=== PATIENT | male | born 1995 | race Caucasian/White ===

== ENCOUNTER 2024-02-17 19:32 | Emergency (ER) | payer OTHER, SELFPAY ==
[2024-02-17] VITALS (9 sets, daily range): BP systolic 113–128; BP diastolic 60–76; PULSE 90–126; RESP 13–22; TEMP 37.4; O2SAT 95–98; BMI 23.7
--- NOTE | 2024-02-17 19:58 | DI.RAD.S_ITS ---
PROCEDURE: XR CHEST 1V INDICATIONS: suspected sepsis TECHNIQUE: One view of the chest was acquired. COMPARISON: None. FINDINGS: Surgical changes and devices: None. Lungs and pleura: Lungs are clear. No pleural effusions or pneumothorax. Mediastinum: Mediastinal contours appear normal. Heart size is normal. Bones and chest wall: No suspicious bony lesions. Overlying soft tissues appear unremarkable. IMPRESSION: No acute cardiopulmonary abnormality is seen. Dictated by: Juan Avendano M.D. on 02/17/2024 at 20:28 Approved by: Juan Avendano M.D. on 02/17/2024 at 20:28
--- NOTE | 2024-02-17 19:58 | EKG_ITS ---
[place] [id number] [place] [id number] Test Date: 2024-02-17 Pat Name: Remy Reyes Department: [facility] Room: Gender: Male Lead Advisor: KAE : 1995 Requested By: Order Number: [id number] Reading MD: Ta Pack MD Measurements Intervals [place] Rate: 114 P: 43 MI: 124 QRS: 57 QRSD: 84 T: -50 QT: 310 QTc: 427 Interpretive Statements Sinus tachycardia T wave abnormality, consider inferior ischemia NO PRIOR TRACING Electronically Signed On 02-18-2024 6:50:30 PST by aT Pack MD
[2024-02-17 20:07] LABS: Add Manual Diff / Slide Review NO; Basophils Absolute Auto 100 /uL (0-100); Basophils Percent Auto 0.8 % (0-2); Eosinophils Absolute Auto 0 /uL (0-450); Eosinophils Percent Auto 0.3 % (2-4); Hematocrit 36.8 % (41-53); Hemoglobin 12.2 g/dL (13.5-17.5); Lymphocytes Absolute Auto 1200 /uL (1100-4500); Lymphocytes Percent Auto 8.1 % (25-40); Mean Corpuscular HGB Conc 33.2 % (30-36); Mean Corpuscular Hemoglobin 27.8 PG (26-34); Mean Corpuscular Volume 83.6 fL (80-100); Monocytes Absolute Auto 1800 /uL (0-900); Monocytes Percent Auto 11.7 % (3-14); Neutrophils Absolute Auto 12100 /uL (1500-7000); Neutrophils Percent Auto 79.1 % (50-75); Platelet Count 480 X10^3/uL (150-400); White Blood Cell Count 15.3 X10^3/uL (4.5-11.0)
[2024-02-17 20:11] LABS: INR 1.5 (0.9-1.3); Prothrombin Time 17.2 SECONDS (9.4-12.5)
[2024-02-17 20:13] LABS: PTT Partial Thromboplastin Tim 32 SECONDS (25.1-36.5)
[2024-02-17 20:15] LABS: Alanine Aminotransferase 98 IU/L (<50); Albumin 3.8 g/dL (3.5-5.0); Albumin Globulin Ratio 1.2 (1.0-2.8); Alkaline Phosphatase 113 U/L (38-126); Aspartate Aminotransferase 40 IU/L (17-59); BUN Creatinine Ratio 15.1 (6-22); Bilirubin Total 0.7 mg/dL (0.2-1.3); Blood Urea Nitrogen 11 mg/dL (9-20); Calcium 8.8 mg/dL (8.4-10.2); Carbon Dioxide 23 mmol/L (22-32); Chloride 100 mmol/L (98-107); Estimated Glomerular Filt Rate > 60 mL/min (>60); Globulin 3.1 g/dL (1.7-4.1); Glucose 135 mg/dL (70-100); HEMOLYSIS < 15 (0-50); Lactate (Lactic Acid) 0.7 mmol/L (0.7-2.1); Lipase 50 U/L (23-300); Potassium 3.9 mmol/L (3.4-5.1); Sodium 132 mmol/L (137-145); Total Protein 6.9 g/dL (6.3-8.2)
[2024-02-17] MEDS: SODIUM CHLORIDE 0.9% 1,000 ML 1000 ML IV (20:19)
[2024-02-17 20:32] LABS: Procalcitonin 0.292 ng/mL (<0.5)
[2024-02-17 20:43] LABS: Bacteria Urine Few (2-10); Mucus Urine 1+ (Negative); RBC Urine 0-1/HPF (0-5/HPF); Squamous Epithelial Cell Urine 0-1 /HPF (0-5/HPF); Urine Volume 10mL (spun); WBC Urine 1-5/HPF (0-5/HPF)
--- NOTE | 2024-02-17 21:00 | PC.NURSE ---
Pt explained history of left lower back pain that started 01/29/24 that he described as radiating to left flank. On 01/31/24 pt started having fevers, left chest pain with radiating pain to left shoulder. He has been seen at the walk in clinic on [facility] and prescribed steroids and muscle relaxers which initially seemed to help. Pt has since stopped taking those medications. He was seen by his PCP at [facility] and prescribed oral abx which he started yesterday. Due to continued elevated WBC count pts pcp told him to be seen in the ER for further testing. Covid/flu testing has been negative. No trauma to left arm/shoulder that pt recalls.
--- NOTE | 2024-02-17 21:35 | ED_ITS ---
HPI - Fever General Chief Complaint: Fever Stated Complaint: fever t-14, resting heart rate 127, sent by pcp Time Seen by Provider: 02/17/24 20:34 Source: patient Mode of arrival: Ambulatory History of Present Illness HPI Narrative: 28-year-old male with no significant past medical history presents by private vehicle for nearly 3 weeks of intermittent fevers and elevated heart rate. Patient states that since no ever 15 he was had daily fevers and profound fatigue. Around the same time he began to have some lower back pain that was attributed to a pinched nerve. He saw the walk-in clinic who gave him a muscle relaxer and a steroid taper. He continued to have fevers and fatigue. Recently he saw his primary care doctor at the [facility], who ordered laboratory work. He stated that the patient's white blood cell count was elevated at 19, however he had no known source and out of precaution Prescribed him azithromycin and Augmentin. Patient has taken 2 doses of these medications. He states that he was told by his flight doc that if he continued to have symptoms he should come to the ER for additional assessment and testing. Patient states that he was lost 10 lb due to his illness and his resting heart rate is persistently over 100. Related Data Allergies Allergy/AdvReac Type Severity Reaction Status Date / Time No Known Drug Allergies Allergy Verified 02/17/24 19:45 Patient History Social History Smoking Status: Never smoker Smoking Status: Never smoker Substance Use Type: does not use Exam Initial Vital Signs Initial Vital Signs: Vital Signs Temperature 99.3 F 02/17/24 19:38 Pulse Rate 126 H 02/17/24 19:38 Respiratory Rate 18 02/17/24 19:38 Blood Pressure 125/76 02/17/24 19:38 Pulse Oximetry 98 02/17/24 19:38 Oxygen Delivery Method Room Air 02/17/24 19:38 Const: Awake, alert, ill-appearing, nontoxic appearing Cardiac: Tachycardia, regular rhythm RESP: unlabored, clear bilaterally, no wheezing GI: Soft, nontender, nondistended, no rebound, no guarding MSK back: Atraumatic, full range of motion, pulses equal, no midline tenderness Skin: Warm, Dry, intact, no rashes Neuro: AO x3, CN II-XII grossly intact, moves all extremities Course Orders Ordered: Discontinued Medications Sodium Chloride (Normal Saline 0.9%) 1,000 mls @ 1,000 mls/hr IV BOLUS ONE Stop: 02/17/24 20:56 Last Infusion: 02/17/24 21:00 Dose: Infused Documented By: Admin: 02/17/24 20:19 Dose: 1,000 mls/hr Documented By: Ondansetron HCl (Ondansetron 4 Mg/2 Ml Inj) 4 mg IV NOW PRN PRN Reason: Nausea And Vomiting Ondansetron HCl (Ondansetron 4 Mg Odt) 4 mg SL NOW PRN PRN Reason: Nausea And Vomiting Vital Signs Vital signs: Vital Signs - 8 hr 02/17/24 22:00 02/17/24 22:00 02/17/24 22:30 Pulse Rate 94 H 104 H Respiratory Rate 16 22 Blood Pressure 128/76 Pulse Oximetry 97 96 Oxygen Delivery Method Room Air 02/17/24 22:33 02/17/24 22:33 02/17/24 23:00 Pulse Rate 105 H Respiratory Rate 17 Blood Pressure 113/60 120/70 Pulse Oximetry 96 Oxygen Delivery Method 02/17/24 23:00 02/17/24 23:30 02/17/24 23:30 Pulse Rate 94 H 90 Respiratory Rate 20 20 Blood Pressure 117/68 Pulse Oximetry 95 95 Oxygen Delivery Method Room Air MDM - Fever Lab Data 02/17/24 19:55 02/17/24 19:55 Labs: Lab Results 02/17/24 02/17/24 Range/Units 19:55 20:22 WBC 15.3 H (4.5-11.0) X10^3/uL RBC 4.40 L (4.5-5.9) X10^6/uL Hgb 12.2 L (13.5-17.5) g/dL Hct 36.8 L (41-53) % MCV 83.6 (80-100) fL MCH 27.8 (26-34) PG MCHC 33.2 (30-36) % RDW 13.0 (11.6-14.8) % Plt Count 480 H (150-400) X10^3/uL Neut % (Auto) 79.1 H (50-75) % Lymph % (Auto) 8.1 L (25-40) % Mellette % (Auto) 11.7 (3-14) % Eos % (Auto) 0.3 L (2-4) % Baso % (Auto) 0.8 (0-2) % Neut # (Auto) 33618 H (2185-0305) /uL Lymph # (Auto) 1200 (4471-1492) /uL Mellette # (Auto) 1800 H (0-900) /uL Eos # (Auto) 0 (0-450) /uL Baso # (Auto) 100 (0-100) /uL PT 17.2 H (9.4-12.5) SECONDS INR 1.5 H (0.9-1.3) APTT 32 (25.1-36.5) SECONDS Sodium 132 L (137-145) mmol/L Potassium 3.9 (3.4-5.1) mmol/L Chloride 100 (98-107) mmol/L Carbon Dioxide 23 (22-32) mmol/L BUN 11 (9-20) mg/dL Creatinine 0.73 (0.66-1.25) mg/dL Estimated GFR > 60 (>60) mL/min BUN/Creatinine Ratio 15.1 (6-22) Glucose 135 H (70-100) mg/dL Lactate 0.7 (0.7-2.1) mmol/L Calcium 8.8 (8.4-10.2) mg/dL Total Bilirubin 0.7 (0.2-1.3) mg/dL AST 40 (17-59) IU/L ALT 98 H (<50) IU/L Alkaline Phosphatase 113 (38-126) U/L Total Protein 6.9 (6.3-8.2) g/dL Albumin 3.8 (3.5-5.0) g/dL Globulin 3.1 (1.7-4.1) g/dL Albumin/Globulin Ratio 1.2 (1.0-2.8) Lipase 50 (23-300) U/L Procalcitonin 0.292 (<0.5) ng/mL TSH 1.23 (0.47-4.68) uIU/mL Urine RBC 0-1/hpf (0-5/HPF) Urine WBC 1-5/hpf (0-5/HPF) Ur Squamous Epith Cells 0-1 /hpf (0-5/HPF) Urine Bacteria Few (2-10) H (None) Urine Mucus 1+ H (Negative) Vol Urine Centrifuged 10ml (spun) Monoscreen Negative (Negative) Urine Dip Bedside Urine Glucose Negative Bedside Urine Bilirubin - Negative Bedside Urine Ketone ++ 40 Urine Specific Matheny 1.020 Bedside Urine Occult Blood - Negative Bedside Urine pH 6.0 Bedside Urine Protein +/- 15 Bedside Urine Urobilinogen - Negative Bedside Urine Nitrite - Negative Bedside Urine Leukocytes +/- 15 Esterase Imaging Data Chest x-ray: Radiologist's Impression: PROCEDURE: XR CHEST 1V INDICATIONS: suspected sepsis TECHNIQUE: One view of the chest was acquired. COMPARISON: None. FINDINGS: Surgical changes and devices: None. Lungs and pleura: Lungs are clear. No pleural effusions or pneumothorax. Mediastinum: Mediastinal contours appear normal. Heart size is normal. Bones and chest wall: No suspicious bony lesions. Overlying soft tissues appear unremarkable. IMPRESSION: No acute cardiopulmonary abnormality is seen. Dictated by: Juan Avendano M.D. on 02/17/2024 at 20:28 Approved by: Juan Avendano M.D. on 02/17/2024 at 20:28 ECG Data Attestation: I personally reviewed and interpreted this ECG as follows: Prior ECG tracings: not available for review Interpretation: Sinus tachycardia at 114 beats per minute. Normal [place]. No STEMI MDM Narrative Medical decision making narrative: Fatigued but nontoxic appearing patient with 3 weeks of persistent symptoms. Physical exam is unremarkable except for a fatigued appearing patient with sinus tachycardia. Lungs are clear, abdomen soft, no tenderness to palpation in any location. He was currently being evaluated by the [facility] [employer] but no cause has been found. Laboratory work reviewed, WBC count 15.3, hemoglobin 12.2, platelets 480, INR 1.5, sodium 132, potassium 3.9, creatinine 0.73, lactic acid 0.7, T bili 0.7, AST 40, ALT 98, alk phos 113, procalcitonin 0.292, TSH 1.23. Monospot negative. Chest x-ray negative for acute findings. Patient received a L of IV fluids and heart rate decreased to 90 beats per minute. Patient stated he did feel improved after receiving IV fluids. Unknown source of patient's reported symptoms. He was afebrile here in the emergency department and other than a WBC count of 15 labs are otherwise fairly unremarkable. Patient reports that his white count with his flight doc was 19, so this is downtrending. Blood cultures has been drawn and are pending at the time of discharge. Patient and his at bedside were counseled on all lab and imaging findings. No obvious cause of fever identified at this time. He was advised to continue to closely follow with his primary doc for definitive cause of symptoms. ED return recautions discussed. Discharge Plan Departure Patient Disposition: Home Clinical Impression: Fever of unknown origin Instructions: DI for Fever (Symptom) -- Adult Activity Restrictions/Additional Instructions: Your laboratory work today shows an overall decrease in her white blood cell count compared to when your PCM measured your blood. Your chest x-ray did not show any signs of pneumonia, and your bloodstream markers of sepsis including a lactic acid and procalcitonin were within normal levels (indicating that this is not sepsis). Your mono screen test today was also normal. I do not know the cause of your persistent symptoms. Blood and urine cultures are pending. Keep an eye out for a phone call, as someone from the hospital we will notify you if they have anything growing in them. Continue to closely follow up with your flight doc to figure out the cause of your symptoms. Stand Alone Forms: Patient Portal/API/Survey
[2024-02-17 21:54] LABS: Monotest Negative (Negative)
[2024-02-18 00:44] LABS: Thyroid Stimulating Hormone 1.23 uIU/mL (0.47-4.68)
== END 2024-02-17 23:52 | disposition home or self-care (01) ==
PROVIDERS: Emergency Provider Emergency Medicine
DX: R50.9 Fever, unspecified (principal); R53.83 Other fatigue; R00.0 Tachycardia, unspecified
CPT/HCPCS: 36415; 71045; 80053; 81003; 81015; 83605; 83690; 84145; 84443; 85025; 85610; 85730; 86318; 87040; 87086; 93005; 93010; 96360; 99284

== ENCOUNTER → 2024-05-22 07:11 | Outpatient (CLI) | payer OTHER, SELFPAY ==
--- NOTE | 2024-05-22 | DI.MRI.S_ITS ---
PROCEDURE: MR HEAD/BRAIN WO/W CON INDICATIONS: METASTATIC GIST NEW ONSET HEADACHE TECHNIQUE: Noncontrast axial T1 spin echo, axial T2 fast spin echo, sagittal and axial FLAIR, coronal T2 fast spin echo, axial gradient echo, axial diffusion and ADC through the brain. After the administration of contrast, axial and coronal and sagittal 3D VIBE or T1 spin echo with fat saturation through the brain. COMPARISON: None. FINDINGS: Image quality: Excellent. CSF Spaces: Basal cisterns are patent. No extra-axial fluid collections. Ventricles are normal in size and shape. Brain: No midline shift. No intracranial bleeds or masses. No abnormal intracranial enhancement. The brainstem appears normal. Diffusion-weighted images demonstrate no acute infarct. No chronic ischemic insults. Normal intravascular flow voids are present. Skull and face: Calvarial marrow is normal in signal. Orbits appear normal. Sinuses: Sinuses and mastoids appear clear. IMPRESSION: No findings concerning for intracranial metastases. No acute intracranial abnormalities or abnormal intracranial enhancement. Dictated by: Juan Avendano M.D. on 05/24/2024 at 8:35 Approved by: Juan Avendano M.D. on 05/24/2024 at 8:40
== END ==
LOC: MRI 07:12
DX: C49.A0 Gastrointestinal stromal tumor, unspecified site (principal); R51.9 Headache, unspecified
CPT/HCPCS: 70553; A9579

== ENCOUNTER → 2024-06-23 08:58 | Outpatient (CLI) | payer OTHER, SELFPAY ==
--- NOTE | 2024-06-23 09:00 | DI.CT.S_ITS ---
PROCEDURE: CT HEAD/BRAIN WO CON INDICATIONS: METASTATIC GIST W/HEADACHES TECHNIQUE: Noncontrast 4.5 mm thick angled axial sections acquired from the foramen magnum to the vertex, with coronal and sagittal reformats. For radiation dose reduction, the following was used: automated exposure control, adjustment of mA and/or kV according to patient size. COMPARISON: [facility], MR, MR HEAD/BRAIN WO/W CON, 05/22/2024, 7:24. FINDINGS: Image quality: Diagnostic. CSF spaces: Basal cisterns are patent. No extra-axial fluid collections. Ventricles are normal in size and shape. Brain: No midline shift. No intracranial masses or hemorrhage. Walsh-white matter interface is normal. Skull and face: Calvarium and visualized facial bones are intact, without suspicious lesions. Sinuses: Visualized sinuses and mastoids are clear. IMPRESSION: No acute intracranial pathology. CT has low sensitivity for intracranial metastases, recommend follow-up MRI if there is concern for development of intracranial metastatic disease. Dictated by: Juan Avendano M.D. on 06/23/2024 at 12:02 Approved by: Juan Avendano M.D. on 06/23/2024 at 12:04
--- NOTE | 2024-06-23 09:00 | DI.CT.S_ITS ---
PROCEDURE: CT CHEST ABD PEL W CON INDICATIONS: METASTATIC GIST W/HEADACHES TECHNIQUE: After the administration of intravenous contrast, 5 mm thick sections acquired from the lung apices to the symphysis. 5 mm coronal and sagittal reformats were performed, with additional 7 mm MIP reformats through the lungs. For radiation dose reduction, the following was used: automated exposure control, adjustment of mA and/or kV according to patient size. COMPARISON: Outside Facility, MR, MR ABDOMEN WO/W CON, 03/01/2024, 15:21. FINDINGS: Image quality: Diagnostic Lungs and pleura: No airspace consolidation. No pleural effusions. Small pulmonary nodules are present for example right anterior lung measuring 2-3 mm 5/243. No suspicious nodule over 6 mm. Attention on follow-up. Mediastinum, heart, and esophagus: Heart size is within normal limits. Anterior mediastinal soft tissue likely hyperplastic thymus, attention on follow-up. No pathologic lymph nodes otherwise by size criteria. Chest wall and thyroid: Unremarkable Liver: Liver lesions are either stable or decreased, for example anterior left lobe measuring 1 cm on image 2/132, previously 1.5 cm. Superior left lobe lesion measuring 0.8 cm (2/107), stable. Gallbladder and biliary system: Unremarkable, nondilated Pancreas: No ductal dilation Spleen: Nonenlarged Adrenals: No discrete nodules Kidneys: No solid mass. No hydronephrosis. Vessels and lymph nodes: The main portal vein is patent. No abdominal aortic aneurysm no pathologic lymphadenopathy by size criteria Bowel and peritoneum: Low-density mass arising from the stomach measures 9.9 x 9.6 cm on 1 axial slice (2/107), previously 10.9 x 10.4 cm on the same corresponding MR image. No bowel obstruction. No pathologic ascites. Nondilated appendix. Body wall: Unremarkable Pelvis: Bladder is unremarkable. Heterogeneous prostate not well assessed on this study. Bones: Small sclerotic lesion in the anterior right pubic bone, indeterminate, possibly bone island. Attention on follow-up. No aggressive appearing osseous findings elsewhere. IMPRESSION: Low-density mass arising from the superior stomach compatible with reported GIST, decreased in size. The low CT density is likely a result of treatment effect. Many liver metastases, either stable or slightly decreased. Other findings above. Dictated by: Helder Worrell M.D. on 06/24/2024 at 15:18 Approved by: Helder Worrell M.D. on 06/24/2024 at 15:27
== END ==
DX: C49.A2 Gastrointestinal stromal tumor of stomach (principal); C78.7 Secondary malignant neoplasm of liver and intrahepatic bile duct
CPT/HCPCS: 70450; 71260; 74177; Q9967

== ENCOUNTER → 2024-09-19 10:48 | Outpatient (CLI) | payer OTHER, SELFPAY ==
--- NOTE | 2024-09-19 10:51 | DI.MRI.S_ITS ---
PROCEDURE: MR ABDOMEN LIVER PROTOCOL INDICATIONS: SURGICAL PLANNING, GIST TECHNIQUE: Coronal HASTE, axial 2D FLASH in- and [id number]; axial breath-hold T2 FSE. Dynamic axial VIBE during the administration of contrast; post-contrast coronal VIBE or 2D FLASH with fat saturation from the hepatic dome to the iliac crests. Optional diffusion weighted imaging and ADC may be performed. COMPARISON: Outside Facility, MR, MR ABDOMEN WO/W CON, 03/01/2024, 15:21. [facility], CT, CT CHEST ABD PEL W CON, 06/23/2024, 10:06. FINDINGS: Image quality: Diagnostic. Lung bases: Unremarkable. Liver: Decreased size of the liver metastases, 4 of which are in segments 2/3, and 1 which is in segment 5. Target lesions as follows: -1 cm segment 2/3 lesion, previously 1.5 cm (series 27, image 40). -0.6 cm segment 5 lesion, previously 0.8 cm (series 27, image 58). Gallbladder: No gallstones or wall thickening. Biliary ducts: No biliary dilation. Pancreas: No ductal dilation. Spleen: Size is within normal limits. Adrenal Glands: No adrenal nodules. Kidneys and Ureters: No hydronephrosis. No solid mass. No complex renal cystic lesion which requires follow up. Stomach and Bowel: Gastric fundal mass measuring 7.4 x 8.7 cm, previously 11.6 x 10.5 cm in 2023 . Peritoneum: No abnormal intraperitoneal fluid. No free air. Ventral Wall: No hernia. Abdominal Nodes: No retroperitoneal or mesenteric adenopathy by size criteria. Vessels: Aorta and inferior vena cava are normal in size. Bones: No aggressive osseous abnormality. IMPRESSION: Decreased size of the gastric mass measuring 7.4 x 8.7 cm, previously 11.6 x 10.5 cm. Decreased size of liver metastases, most of which are in segments 2/3, 1 which is in the right hepatic lobe. Dictated by: Harry Brian M.D. on 09/20/2024 at 10:46 Approved by: Harry Brian M.D. on 09/20/2024 at 10:54
== END ==
LOC: MRI 10:50
DX: Z01.818 Encounter for other preprocedural examination (principal); C49.A0 Gastrointestinal stromal tumor, unspecified site; C78.7 Secondary malignant neoplasm of liver and intrahepatic bile duct
CPT/HCPCS: 74183; A9579

== ENCOUNTER → 2024-12-13 13:08 | Outpatient (CLI) | payer OTHER, SELFPAY ==
--- NOTE | 2024-12-13 13:11 | DI.RAD.S_ITS ---
PROCEDURE: FL BARIUM SWALLOW INDICATIONS: dysphagia COMPARISON: None. FINDINGS: Function: There is normal esophageal peristalsis. Moderate to severe gastroesophageal reflux is noted with contrast reflux to the proximal esophageal lumen. There is normal transit of a calibrated barium tablet through the esophagus into the stomach. Morphology: Single contrast views show no esophageal strictures, extrinsic mass effects, or diverticula. Limited images of the stomach demonstrate no gross abnormalities. IMPRESSION: Significant gastroesophageal reflux. No focal high-grade stricture or gross intraluminal filling defects. No gross abnormality is seen in visualized portion of stomach. Dictated by: Graham Rice M.D. on 12/13/2024 at 17:19 Approved by: Graham Rice M.D. on 12/13/2024 at 17:20
== END ==
LOC: RAD 13:10
PROVIDERS: Visit Provider Radiology Diagnostic Radiology
DX: R13.10 Dysphagia, unspecified (principal); K21.9 Gastro-esophageal reflux disease without esophagitis
CPT/HCPCS: 74220

== ENCOUNTER → 2024-12-23 08:19 | Outpatient (CLI) | payer OTHER, SELFPAY ==
--- NOTE | 2024-12-23 08:20 | DI.MRI.S_ITS ---
PROCEDURE: MR ABDOMEN LIVER PROTOCOL INDICATIONS: GASTROINTESTINAL STROMAL TUMOR TECHNIQUE: Coronal HASTE, axial 2D FLASH in- and [id number]; axial breath-hold T2 FSE. Dynamic axial VIBE during the administration of contrast; post-contrast coronal VIBE or 2D FLASH with fat saturation from the hepatic dome to the iliac crests. Optional diffusion weighted imaging and ADC may be performed. COMPARISON: [facility], CT, CT CHEST ABD PEL W CON, 06/23/2024, 10:06. [facility], MR, MR ABDOMEN LIVER PROTOCOL, 09/19/2024, 11:07. FINDINGS: Image quality: Diagnostic. Lung bases: Unremarkable. Liver: Interval resection of the liver metastases. The 1.7 x 1.6 cm treatment bed in segment 2/4 demonstrates signal characteristics different than the other resected lesions, with decreased internal microhemorrhage, and with T2 intermediate signal. No restricted diffusion. There is new thrombosis of a distal posterior right intrahepatic portal vein, resulting in a vascular shunt of segment 7 and (series 12, image 27). No new liver lesion on the Eovist sequences. Gallbladder: No gallstones or wall thickening. Biliary ducts: No biliary dilation. Pancreas: No ductal dilation. Spleen: New splenic infarcts. Adrenal Glands: No adrenal nodules. Kidneys and Ureters: No hydronephrosis. No solid mass. No complex renal cystic lesion which requires follow up. Stomach and Bowel: Normal colonic caliber, without significant wall thickening. Interval resection of the gastric gist. Peritoneum: No abnormal intraperitoneal fluid. No free air. Ventral Wall: No hernia. Abdominal Nodes: No retroperitoneal or mesenteric adenopathy by size criteria. Vessels: Aorta and inferior vena cava are normal in size. Bones: No aggressive osseous abnormality. IMPRESSION: Interval resection of the liver metastases and gastric GIST. There is slightly atypical signal associated with the 1.7 x 1.6 cm treatment bed in segment 2/4, which may indicate mild residual disease. Attention on follow-up. 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 Dictated by: Harry Brian M.D. on 12/24/2024 at 13:13 Approved by: Harry Brian M.D. on 12/24/2024 at 13:28
== END ==
DX: C49.A0 Gastrointestinal stromal tumor, unspecified site (principal); C78.7 Secondary malignant neoplasm of liver and intrahepatic bile duct; I81 Portal vein thrombosis
CPT/HCPCS: 74183; A9579